=== PATIENT | male | born 1995 | race Caucasian/White ===

== ENCOUNTER 2022-01-26 17:38 | Emergency (ER) | payer BC ==
[~2022-01-26] VITALS: Ht 172.7 cm; Wt 75.9 kg
[2022-01-26] MEDS ORDERED: ketorolac trometh. 30mg/ml inj. IV ONE (19:30)
[2022-01-26] MEDS ORDERED: clindamycin 150mg capsule PO ONE (19:45)
[2022-01-26] MEDS ORDERED: CLIN-97 PO (19:48)
[2022-01-26] MEDS ORDERED: IBUP-1986 PO (19:48)
[2022-01-26 19:58] VITALS: BP 127/84
== END 2022-01-26 20:01 | disposition home or self-care (01) ==
LOC: ER 17:39
DX: K08.89 Other specified disorders of teeth and supporting structures (principal); F17.200 Nicotine dependence, unspecified, uncomplicated; Z88.0 Allergy status to penicillin
CPT/HCPCS: 96374; 99283; J1885